=== PATIENT | male | born 2005 | race Caucasian/White ===

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

== ENCOUNTER 2024-05-16 16:14 | Outpatient (CLI) | payer SELFPAY ==
--- NOTE | 2024-05-16 16:55 | XRR_ITS ---
PROCEDURE INFORMATION: Exam: XR Lumbosacral Spine Exam date and time: 05/16/2024 5:10 PM Age: 18 years old Clinical indication: Low back pain; Additional info: Left lower back pain TECHNIQUE: Imaging protocol: Radiologic exam of the lumbosacral spine. Views: 2 or 3 views. COMPARISON: No relevant prior studies available. FINDINGS: Bones/joints: There appears to be a limbus vertebra anatomy involving the anterior inferior endplate of L2.. No acute fracture. Normal alignment. Soft tissues: Unremarkable. XR/XR lumbar spine 2-3V* [id number] IMPRESSION: No acute fracture or traumatic malalignment.
== END 2024-05-16 16:15 | disposition home or self-care (01) ==
LOC: RAD 16:20
PROVIDERS: PCP Nurse Practitioner; Visit Provider Nurse Practitioner
DX: M54.50 Low back pain, unspecified (principal); G89.29 Other chronic pain
CPT/HCPCS: 72100